=== PATIENT | male | born 1985 | race Caucasian/White ===

== ENCOUNTER 2021-02-10 14:30 | Emergency (ER) | payer OTHER ==
[2021-02-10] MEDS ORDERED: IBUPROFEN600 MG PO (16:59)
[2021-02-10] MEDS ORDERED: MEDROL DOSEPAK 24 MG PO (16:59)
[2021-02-10] MEDS ORDERED: ZYRTEC10 MG PO (16:59)
[2021-02-10] MEDS ORDERED: FLONASE 0.05% N16 GM (16:59)
== END 2021-02-10 17:30 | disposition home or self-care (01) ==
LOC: ER1 14:30
DX: J02.9 Acute pharyngitis, unspecified (principal)
CPT/HCPCS: 87081; 87880; 99283